=== PATIENT | male | born 1985 | race Hispanic/Latino ===

== ENCOUNTER 2018-08-08 09:07 | Emergency (ER) | payer SELFPAY | END 2018-08-08 09:33 | disposition home or self-care (01) | LOC: EDH 09:07 | DX: B86 Scabies (principal) ==

== ENCOUNTER 2018-09-27 20:57 | Emergency (ER) | payer SELFPAY ==
[2018-09-27] MEDS ORDERED: SODIUM CHLORIDE 0.9% 1000ML 2,000 ML IV ONE (21:45)
[2018-09-27] MEDS ORDERED: ACETAMINOPHEN EXTRA STRENGTH 500 MG TABLET ONE (21:45)
[2018-09-27] MEDS ORDERED: KETOROLAC TROMETHAMINE 30MG/ML ONE (21:45)
[2018-09-27] MEDS ORDERED: ONDANSETRON HCL 4 MG/2 ML VIAL ONE (21:45)
[2018-09-27 22:09] LABS: BASOPHILS % (AUTO) 0.3 % (0.0-5.0); HEMATOCRIT 50.2 % (42-54); LYMPHOCYTES % (AUTO) 11.6 % (21.0-51.0); MEAN CORPUSCULAR HEMOGLOBIN 32.5 pg (27.0-33.0); MEAN CORPUSCULAR HGB CONC 35.2 g/dL (32.0-36.0); MEAN CORPUSCULAR VOLUME 92.4 fL (79-99); MONOCYTES % (AUTO) 7.4 % (3.0-13.0); NEUTROPHILS % (AUTO) 80.7 % (40.0-77.0); PLATELET COUNT (AUTO) 94 K/uL (130-400); RED BLOOD CELL COUNT(AUTO) 5.44 MIL/uL (4.50-6.20); RED CELL DISTRIBUTION WIDTH 13.1 % (11.0-15.5); WHITE BLOOD COUNT (AUTO) 6.3 K/uL (4.8-10.8)
[2018-09-27 22:18] LABS: POTASSIUM 3.3 mmol/L (3.5-5.1)
[2018-09-27] MEDS ORDERED: DOXYCYCLINE HYCLATE 100 MG TABLET PO ONE (22:45)
== END 2018-09-28 00:08 | disposition home or self-care (01) ==
LOC: EDH 20:57
DX: H65.193 Other acute nonsuppurative otitis media, bilateral (principal); R50.9 Fever, unspecified; R19.7 Diarrhea, unspecified; R11.2 Nausea with vomiting, unspecified; J02.9 Acute pharyngitis, unspecified; Z72.0 Tobacco use
CPT/HCPCS: 36415; 80048; 85025; 96361; 96374; 96375; 99283; J1885; J2405; J7030